=== PATIENT | male | born 1990 | race Caucasian/White ===

== ENCOUNTER → 2023-08-30 15:32 | Outpatient (REF) | payer BC, SELFPAY | LOC: RAD 15:32 | PROVIDERS: ATTENDING PHYSICIAN Physician Assistant | DX: R79.89 Other specified abnormal findings of blood chemistry (principal) | CPT/HCPCS: 76700 ==

== ENCOUNTER → 2023-10-10 06:39 | Day surgery (SDC) | payer BC, SELFPAY | LOC: GI 06:39 | PROVIDERS: ATTENDING PHYSICIAN Internal Medicine Gastroenterology | DX: K31.89 Other diseases of stomach and duodenum (principal); K30 Functional dyspepsia | CPT/HCPCS: 43239; 88305; 88342 ==